=== PATIENT | female | born 1995 | race American Indian/Alaskan Native ===

== ENCOUNTER 2021-12-07 16:09 | Emergency (ER) | payer BC ==
[2021-12-07 16:20] VITALS: BP 139/76
--- NOTE | 2021-12-07 18:15 | Emergency Department Report ---
ED General Adult HPI - General Chief complaint: Anxiety Stated complaint: PANICK ATTACK Time Seen by Provider: 12/07/21 18:03 Source: patient Mode of arrival: Ambulatory Limitations: No Limitations - History of Present Illness Initial comments: 26-year-old -[place] female patient presents with complaints of anxiety attacks starting yesterday. She states a history of anxiety and reports she has been out of her propranolol for about 6 to 8 months. She takes propranolol intermittently for panic attacks and recently moved to [place] and does not currently have a primary care provider. She denies any SI/HI, chest pain, shortness of breath, cough, or other symptoms. No other past medical history per patient. Severity scale (0 -10): 4 - Related Data Previous Rx's Medication Instructions Recorded Last Taken Type propranoloL [Inderal] 10 mg PO QDAY PRN 30 Days #30 tab 12/07/21 Unknown Rx Allergies Allergy/AdvReac Type Severity Reaction Status Date / Time No Known Allergies Allergy Verified 12/07/21 16:20 ED Review of Systems ROS: Stated complaint: PANICK ATTACK Other details as noted in HPI Constitutional: denies: chills, fever, malaise Cardiovascular: other (Fast heartbeat). denies: chest pain, edema Gastrointestinal: denies: abdominal pain, nausea, vomiting Genitourinary: denies: other (No leg pain or swelling or recent long travel; no history of DVT/PE/cancer per patient) Musculoskeletal: denies: back pain Skin: denies: change in color Neurological: denies: headache ED Past Medical Hx - Medications Home Medications: Home Medications Medication Instructions Recorded Confirmed Last Taken Type propranoloL [Inderal] 10 mg PO QDAY PRN 30 Days #30 tab 12/07/21 Unknown Rx ED Physical Exam - General Limitations: No Limitations General appearance: alert, in no apparent distress - Head Head exam: Present: atraumatic, normocephalic - Eye Eye exam: Present: normal appearance. Absent: scleral icterus - Respiratory Respiratory exam: Present: normal lung sounds bilaterally. Absent: respiratory distress - Cardiovascular Cardiovascular Exam: Present: regular rate, normal rhythm - Neurological Exam Neurological exam: Present: alert, oriented X3 - Psychiatric Psychiatric exam: Present: normal affect, normal mood - Skin Skin exam: Present: warm, dry, intact, normal color. Absent: rash ED Course Vital Signs 12/07/21 16:19 Temperature 98.4 F Pulse Rate 93 H Respiratory 20 Rate Blood Pressure 139/76 [Left] O2 Sat by Pulse 100 Oximetry ED Medical Decision Making - EKG Data EKG shows normal: sinus rhythm Rate: normal - Medical Decision Making 26-year-old -[place] female patient presents with complaints of anxiety attacks starting yesterday. She states a history of anxiety and reports she has been out of her propranolol for about 6 to 8 months. She takes propranolol intermittently for panic attacks and recently moved to [place] and does not currently have a primary care provider. She denies any SI/HI, chest pain, shortness of breath, cough, or other symptoms. No other past medical history per patient. Propranolol refill given. Patient provided with referral for PCP. She is otherwise well-appearing and stable for discharge home. Should return precautions were discussed in detail with patient who verbalizes understanding Critical care attestation.: If time is entered above; I have spent that time in minutes in the direct care of this critically ill patient, excluding procedure time. ED Disposition Clinical Impression: Anxiety attack Disposition: 01 HOME / SELF CARE / HOMELESS Is pt being admited?: No Condition: Stable Instructions: Panic Attack, [id number] Prescriptions: propranoloL [Inderal] 10 mg PO QDAY PRN 30 Days #30 tab PRN Reason: Anxiety Referrals: [facility] [Provider Group] - 3-5 Days MASON SHELBY MD [Referring] - 3-5 Days Forms: Work/School Release Form(ED)
--- NOTE | 2021-12-10 14:26 | Electrocardiograph Report ---
[facility] Test Date: 2021-12-07 Test Time: 17:08:19 Pat Name: DANIEL MERCADO Department: Room: Gender: F [employer]: TV : 1995 Requested By: SANJUANITA ROJAS Order Number: [id number] Reading MD: Beckie Valenzuela Measurements Intervals [place] Rate: 83 P: 60 NH: 153 QRS: 32 QRSD: 81 T: 19 QT: 379 QTc: 447 Interpretive Statements Sinus rhythm No previous ECG available for comparison Electronically Signed On 12-10-2021 14:26:38 EST by Beckie Valenzuela
== END 2021-12-07 19:07 | disposition home or self-care (01) ==
LOC: ED 16:09
DX: F41.9 Anxiety disorder, unspecified (principal); F41.0 Panic disorder [episodic paroxysmal anxiety]; Z79.899 Other long term (current) drug therapy
CPT/HCPCS: 93005; 99282